=== PATIENT | male | born 1965 | race African-American/Black ===

== ENCOUNTER → 2016-11-03 | Outpatient (CLI) | payer OTHER ==
[~2016-11-03] MED LIST: AMBI5TAB PO; CIPR0.3S2 RIGHT EYE; COMB0.2S EACH EYE; DORZ2SOL EACH EYE; DORZO2%O EACH EYE; LISI-360 PO; LISI10TA3 PO; METF500 PO; METF500T PO; TRAV0.00 EACH EYE
[2016-11-03 08:06] LABS: ALKALINE PHOSPHATASE 70 U/L (45-117); ALT (GPT) 32 U/L (12-78); ANION GAP 7 MEQ/L (5-15); AST (GOT) 15 U/L (15-37); BICARBONATE 27.2 MEQ/L (21.0-32.0); BLOOD UREA NITROGEN 13 MG/DL (7-18); CHLORIDE 106 MEQ/L (98-107); GLOMERULAR FILTRATION RATE 86 ML/MIN (>89); GLUCOSE,FASTING 126 MG/DL (74-99); HDL CHOLESTEROL 47.5 MG/DL (40.0-60.0); LDL CHOLESTEROL 106 MG/DL (0-99); POTASSIUM 4.4 MEQ/L (3.5-5.1); SODIUM (NA) 140 MEQ/L (136-145); TOTAL BILIRUBIN ADULT 0.4 MG/DL (0.2-1.0)
[2016-11-03 10:19] LABS: CREATININE RANDOM URINE 68 MG/DL (27-300)
[2016-11-03 10:28] LABS: MICRO ALBUMIN RANDOM URINE RAW LESS THAN 5.0 MG/L (0.0-30.0); MICROALBUMIN/CREAT RATIO RAND 7 MG/G CRE (0-30)
[2016-11-03 16:29] LABS: HEMOGLOBIN A1a 1.1 %; HEMOGLOBIN A1b 1.6 %; HEMOGLOBIN Ao 84.1 %; HEMOGLOBIN P3 3.8 %
== END ==
LOC: CLAB 07:08
PROVIDERS: ATTEND Family Medicine
DX: E78.5 Hyperlipidemia, unspecified (principal); I10 Essential (primary) hypertension; G47.01 Insomnia due to medical condition; N52.9 Male erectile dysfunction, unspecified; E66.9 Obesity, unspecified; Z13.220 Encounter for screening for lipoid disorders; Z12.5 Encounter for screening for malignant neoplasm of prostate; Z12.11 Encounter for screening for malignant neoplasm of colon; E11.9 Type 2 diabetes mellitus without complications
CPT/HCPCS: 36415; 80053; 80061; 82043; 83036; 84153

== ENCOUNTER → 2017-05-05 | Outpatient (CLI) | payer OTHER ==
[~2017-05-05] MED LIST changes: -DORZO2%O EACH EYE; -LISI-360 PO; -METF500 PO
[2017-05-05 07:23] LABS: GLOMERULAR FILTRATION RATE 81 ML/MIN (>89)
[2017-05-05 07:26] LABS: ALKALINE PHOSPHATASE 76 U/L (45-117); ALT (GPT) 30 U/L (12-78); HDL CHOLESTEROL 42.9 MG/DL (40.0-60.0); LDL CHOLESTEROL 121 MG/DL (0-99); TOTAL BILIRUBIN ADULT 0.5 MG/DL (0.2-1.0)
[2017-05-05 07:28] LABS: ANION GAP 7 MEQ/L (5-15); AST (GOT) 22 U/L (15-37); BICARBONATE 26.2 MEQ/L (21.0-32.0); BLOOD UREA NITROGEN 17 MG/DL (7-18); CHLORIDE 107 MEQ/L (98-107); GLUCOSE,FASTING 201 MG/DL (74-99); SODIUM (NA) 140 MEQ/L (136-145)
[2017-05-05 11:32] LABS: HEMOGLOBIN A1a 1.1 %; HEMOGLOBIN A1b 1.9 %; HEMOGLOBIN Ao 82.1 %; HEMOGLOBIN LA1C 2.6 %; HEMOGLOBIN P3 4.3 %
== END ==
LOC: CLAB 06:34
PROVIDERS: ATTEND Family Medicine
DX: E11.9 Type 2 diabetes mellitus without complications (principal); E78.5 Hyperlipidemia, unspecified; I10 Essential (primary) hypertension; G47.01 Insomnia due to medical condition; H40.9 Unspecified glaucoma
CPT/HCPCS: 36415; 80053; 80061; 83036

== ENCOUNTER 2017-06-02 05:06 | Emergency (ER) | payer OTHER ==
[2017-06-02 05:10] VITALS: BP 207/105; PULSE 76; RESP 15; TEMP 98.3; O2SAT 96
[2017-06-02] MEDS ORDERED: LISI20TA3 PO (05:22)
[2017-06-02 05:24] VITALS: BP 197/109; PULSE 82; RESP 18; O2SAT 98
[2017-06-02] MEDS ORDERED: ONDANSETRON ODT 4 MG TAB PO ONE (05:30)
--- NOTE | 2017-06-02 05:33 | PD ---
HPI Chief Complaint: Hypertension Time Seen by Provider: 05:25 Travel History International Travel<30 days: No Contact w/Intl Traveler<30days: No Traveled to known affect area: No History of Present Illness HPI 52-year-old male arrives to the ER complaining of high blood pressure. Normally his blood pressure is about 140/80. Yesterday he switched his blood pressure medication from lisinopril to lisinopril with hydrochlorothiazide. He describes a sensation of head fullness associated with the elevated blood pressure. About an hour before he came to the ER he took the lisinopril hydrochlorothiazide. He has no chest pain or shortness of breath. No numbness tingling weakness. Location cardiopulmonary/vascular. PFSH Past Medical History Cardiovascular Problems: Yes (hypertension) Diabetes: Yes (DM) Patient Takes Glucophage: Yes Diminished Hearing: No Hypertension: Yes Past Surgical History AICD: No Joint Replacement: No Pacemaker: No Social History Alcohol Use: Yes (X2 PER WEEK/BOTTLE OF WINE/LAST INTAKE YESTERDAY) Tobacco Use: Yes (STOPPED 1991/USE TO SMOKE 11/01/STARTED AGE 15) Substance Use: No Allergies-Medications (Allergen,Severity, Reaction): Coded Allergies: Darvon (Verified Adverse Reaction, Mild, NAUSEA, 06/02/17) Reported Meds & Prescriptions Reported Meds & Active Scripts Active Reported Tramadol (Tramadol HCl) 50 Mg Tab 50 Mg PO Q8H PRN Lisinopril-Hctz 20-25 Mg Tab 1 Tab PO DAILY Travatan Z Opth Drops (Travoprost) 0.004 % Soln 1 Drop EACH EYE HS Metformin (Metformin HCl) 500 Mg Tab 500 Mg PO DAILY With a meal Dorzolamide Opth Drops (Dorzolamide HCl) 2% Soln 1 Drop EACH EYE TID Combigan Opth Drops (Brimonidine-Timolol Opth Drops) 0.2-0.5% Soln 1 Drop EACH EYE BID Review of Systems Except as stated in HPI: all other systems reviewed are Neg Physical Exam Narrative GENERAL: 52-year-old male well-nourished well-developed SKIN: Focused skin assessment warm/dry. HEAD: Atraumatic. Normocephalic. EYES: Pupils equal and round. No scleral icterus. No injection or drainage. ENT: No nasal bleeding or discharge. Mucous membranes pink and moist. NECK: Trachea midline. No JVD. CARDIOVASCULAR: Regular rate and rhythm. No murmur appreciated. RESPIRATORY: No accessory muscle use. Clear to auscultation. Breath sounds equal bilaterally. GASTROINTESTINAL: Abdomen soft, non-tender, nondistended. Hepatic and splenic margins not palpable. MUSCULOSKELETAL: No obvious deformities. No clubbing. No cyanosis. No edema. NEUROLOGICAL: Awake and alert. No obvious cranial nerve deficits. Motor grossly within normal limits. Normal speech. PSYCHIATRIC: Appropriate mood and affect; insight and judgment normal. Data Data Last Documented VS Vital Signs Date Time Temp Pulse Resp B/P Pulse Ox O2 Delivery O2 Flow Rate FiO2 06/02/17 06:31 77 179/91 06/02/17 05:24 18 98 Room Air 06/02/17 05:10 98.3 Vital signs reviewed Orders Ondansetron Odt (Zofran Odt) (06/02/17 05:30) Clonidine (Catapres) (06/02/17 05:45) MDM Medical Decision Making Medical Screen Exam Complete: Yes Emergency Medical Condition: Yes Differential Diagnosis Hypertensive emergency, hypertensive crisis, hypertensive urgency, secondary hypertension Narrative Course Patient received clonidine. Blood pressure decreased. He is ready for discharge. Return precautions discussed Diagnosis Primary Impression: Hypertension Qualified Code: I10 - Essential hypertension Referrals: Primary Care Physician 2 days Additional Instructions: Please follow-up with your primary care provider if your blood pressure continues to be elevated. You have a choice when it comes to health care, and we are glad that you chose [facility]. Hopefully, we have met your expectations on today's visit. You are welcome to return to [facility] at any time, as we are committed to meeting the health care needs of our community. Med/Other Pt SpecificInfo: No Change to Meds Disposition: 01 DISCHARGE HOME Condition: Stable Bartolo Farah MD Jun 02, 2017 05:33
[2017-06-02] MEDS ORDERED: cloNIDine HCL 0.1 MG TAB PO ONE (05:45)
[2017-06-02] MEDS ORDERED: TRAM50TA PO (05:49)
[2017-06-02 06:00] VITALS: BP 189/91
[2017-06-02 06:31] VITALS: BP 179/91; PULSE 77
== END 2017-06-02 06:54 | disposition home or self-care (01) ==
LOC: NEPE 05:06
DX: I10 Essential (primary) hypertension (principal); E11.9 Type 2 diabetes mellitus without complications; Z87.891 Personal history of nicotine dependence; Z79.899 Other long term (current) drug therapy
CPT/HCPCS: 99283

== ENCOUNTER → 2017-11-29 | Outpatient (CLI) | payer OTHER ==
[~2017-11-29] MED LIST changes: -AMBI5TAB PO; -CIPR0.3S2 RIGHT EYE; -LISI10TA3 PO; +LISI20TA3 PO; +TRAM50TA PO
[2017-11-29 08:45] LABS: AST (GOT) 19 U/L (15-37); BICARBONATE 29.5 MEQ/L (21.0-32.0); BLOOD UREA NITROGEN 21 MG/DL (7-18); CALCIUM 9.1 MG/DL (8.5-10.1); CHLORIDE 104 MEQ/L (98-107); CREATININE 1.28 MG/DL (0.60-1.30); GLOMERULAR FILTRATION RATE 71 ML/MIN (>89); GLUCOSE,FASTING 212 MG/DL (74-99); SODIUM (NA) 139 MEQ/L (136-145)
[2017-11-29 08:47] LABS: CHOLESTEROL 186 MG/DL (120-200); TRIGLYCERIDES 129 MG/DL (42-150)
[2017-11-29 08:50] LABS: ALKALINE PHOSPHATASE 71 U/L (45-117); ALT (GPT) 37 U/L (12-78); CHOLESTEROL/ HDL RATIO 4.52 RATIO; HDL CHOLESTEROL 41.1 MG/DL (40.0-60.0); LDL CHOLESTEROL 119 MG/DL (0-99); TOTAL BILIRUBIN ADULT 0.6 MG/DL (0.2-1.0); TOTAL PROTEIN 7.8 GM/DL (6.4-8.2)
[2017-11-29 16:31] LABS: HEMOGLOBIN A1C 8.1 % (4.3-6.0)
== END ==
LOC: CLAB 07:53
PROVIDERS: ATTEND Family Medicine
DX: E11.9 Type 2 diabetes mellitus without complications (principal); E78.5 Hyperlipidemia, unspecified; I10 Essential (primary) hypertension; G47.01 Insomnia due to medical condition; H40.9 Unspecified glaucoma; E66.9 Obesity, unspecified
CPT/HCPCS: 36415; 80053; 80061; 83036

== ENCOUNTER → 2018-03-13 | Outpatient (CLI) | payer OTHER ==
[2018-03-13 08:17] LABS: HEMATOCRIT 41.2 % (39.0-51.0); HEMOGLOBIN 14.1 GM/DL (13.0-17.0); MEAN CELL VOLUME 86.9 FL (80.0-100.0); MEAN CORPUSCULAR HEMOGLOBIN 29.8 PG (27.0-34.0); MEAN CORPUSCULAR HGB CONC 34.3 % (32.0-36.0); MEAN PLATELET VOLUME 10.5 FL (7.0-11.0); PLATELET COUNT 142 TH/MM3 (150-450); RED BLOOD COUNT 4.74 MIL/MM3 (4.50-5.90); RED CELL DISTRIBUTION WIDTH 13.9 % (11.6-17.2); WHITE BLOOD COUNT 8.4 TH/MM3 (4.0-11.0)
[2018-03-13 08:48] LABS: ALBUMIN 3.4 GM/DL (3.4-5.0); ALT (GPT) 50 U/L (12-78); AST (GOT) 26 U/L (15-37); BICARBONATE 27.8 MEQ/L (21.0-32.0); BLOOD UREA NITROGEN 18 MG/DL (7-18); CALCIUM 8.5 MG/DL (8.5-10.1); CHLORIDE 105 MEQ/L (98-107); CHOLESTEROL 126 MG/DL (120-200); CREATININE 1.13 MG/DL (0.60-1.30); GLOMERULAR FILTRATION RATE 82 ML/MIN (>89); GLUCOSE,FASTING 169 MG/DL (74-99); SODIUM (NA) 140 MEQ/L (136-145); TRIGLYCERIDES 208 MG/DL (42-150)
[2018-03-13 08:55] LABS: ALKALINE PHOSPHATASE 79 U/L (45-117); CHOLESTEROL/ HDL RATIO 3.66 RATIO; HDL CHOLESTEROL 34.4 MG/DL (40.0-60.0); LDL CHOLESTEROL 50 MG/DL (0-99); TOTAL BILIRUBIN ADULT 0.3 MG/DL (0.2-1.0); TOTAL PROTEIN 7.2 GM/DL (6.4-8.2)
[2018-03-13 16:31] LABS: HEMOGLOBIN A1C 7.1 % (4.3-6.0)
== END ==
LOC: CLAB 07:31
DX: Z00.00 Encounter for general adult medical examination without abnormal findings (principal); E78.5 Hyperlipidemia, unspecified; E11.9 Type 2 diabetes mellitus without complications
CPT/HCPCS: 36415; 80053; 80061; 82043; 83036; 84443; 85027